=== PATIENT | male | born 1955 ===

== ENCOUNTER 2018-04-09 00:33 | Emergency (ER) | payer SELFPAY ==
[2018-04-09 00:37] VITALS: RESP 18
--- NOTE | 2018-04-09 01:16 | ED PDOC ---
HPI: Head Injury Time Seen by Provider: 04/09/18 00:40 Chief Complaint (Nursing): Trauma Chief Complaint (Provider): head injury History Per: EMS History/Exam Limitations: intoxication Additional Complaint(s): 62 y/o male brought in by EMS for evaluation of head injury. Patient was found walking up a flight of stairs with blood all over him and a bump on his head. Patient intoxicated; HPI limited due to patient's current state Past Medical History Reviewed: Historical Data, Nursing Documentation, Vital Signs Vital Signs: Last Vital Signs Temp 97.8 F 04/09/18 00:35 Pulse 97 H 04/09/18 00:35 Resp 18 04/09/18 00:35 BP 129/77 04/09/18 00:35 Pulse Ox 93 L 04/09/18 00:35 - Home Medications Home Medications: Ambulatory Orders Medication Instructions Recorded Amoxicillin/Clavulanate [Augmentin 1 tab PO Q12 #13 tab 04/09/18 875 MG-125 MG] - Allergies Allergies/Adverse Reactions: Allergies Allergy/AdvReac Type Severity Reaction Status Date / Time Unobtainable Allergy Verified 04/09/18 00:59 Review of Systems Review Of Systems: ROS cannot be obtained secondary to pt's inabilty to answer questions. Physical Exam - Reviewed Nursing Documentation Reviewed: Yes Vital Signs Reviewed: Yes - Physical Exam Appears: Positive for: Well, Non-toxic, No Acute Distress Head Exam: Negative for: ATRAUMATIC (0.5cm superficial laceration with large underlying fluctuant hematoma to right frontal scalp ) Skin: Positive for: Normal Color Eye Exam: Positive for: Normal appearance, EOMI, PERRL. Negative for: Periorbital swelling, Periorbital tenderness, Conjunctival injection ENT: Positive for: TM Is/Are (clear b/l), Other (dried blood bilateral nares; no septal hematoma bilaterally) Cardiovascular/Chest: Positive for: Regular Rate, Rhythm Respiratory: Positive for: Normal Breath Sounds Gastrointestinal/Abdominal: Positive for: Normal Exam Back: Positive for: Normal Inspection Extremity: Positive for: Normal ROM Neurologic/Psych: Positive for: Alert, Oriented (x1) - Laboratory Results Result Diagrams: 04/09/18 02:20 04/09/18 02:20 - ECG O2 Sat by Pulse Oximetry: 93 - Progress ED Course And Treament: labs, CT head, CT facial bones, CT cervical spine ordered EXAM: CT Head Without Intravenous Contrast EXAM DATE/TIME: 04/09/2018 1:00 AM CLINICAL HISTORY: 62 years old, male; Injury or trauma; Fall; Initial encounter; Blunt trauma ( contusions or hematomas) and swelling (edema); Additional info: ETOH, head injury TECHNIQUE: Axial computed tomography images of the head/brain without intravenous contrast. All CT scans at this facility use at least one of these dose optimization techniques: automated exposure control; mA and/or kV adjustment per patient size (includes targeted exams where dose is matched to clinical indication); or iterative reconstruction. COMPARISON: No relevant prior studies available. FINDINGS: Brain: Normal. No hemorrhage. No significant white matter disease. No edema. Ventricles: Normal. No ventriculomegaly. Bones/joints: Nasal bone fracture. Right frontal bone fracture which extends to the right superior lateral orbital wall. Sinuses: Partial opacification of the sinuses. Mastoid air cells: Normal as visualized. No mastoid effusion. Soft tissues: Large right frontal subcutaneous tissue hematoma. Small periorbital hematoma and subcutaneous tissue air. IMPRESSION: 1. Large right frontal subcutaneous tissue hematoma. 2. Nasal bone fracture. 3. Right frontal bone fracture which extends to the right superior lateral orbital wall. 4. Small periorbital hematoma and subcutaneous tissue air. 5. No definite acute intracranial abnormality. EXAM: CT Cervical Spine Without Intravenous Contrast EXAM DATE/TIME: 04/09/2018 1:00 AM CLINICAL HISTORY: 62 years old, male; Injury or trauma; Fall; Initial encounter; Blunt trauma; Additional info: ETOH, fall TECHNIQUE: Axial computed tomography images of the cervical spine without intravenous contrast. All CT scans at this facility use at least one of these dose optimization techniques: automated exposure control; mA and/or kV adjustment per patient size (includes targeted exams where dose is matched to clinical indication); or iterative reconstruction. COMPARISON: No relevant prior studies available. FINDINGS: Vertebrae: No acute fracture. Normal alignment. Discs/Spinal canal/Neural foramina: Mild degenerative changes of the osseous structures. Soft tissues: Unremarkable. Lung apices: Normal. IMPRESSION: No acute cervical spine fracture. EXAM: CT Maxillofacial Without Intravenous Contrast EXAM DATE/TIME: 04/09/2018 1:00 AM CLINICAL HISTORY: 62 years old, male; Injury or trauma; Fall; Initial encounter; Blunt trauma ( contusions or hematomas); Maxilla; Additional info: ETOH, fall TECHNIQUE: Axial computed tomography images of the face without intravenous contrast. All CT scans at this facility use at least one of these dose optimization techniques: automated exposure control; mA and/or kV adjustment per patient size (includes targeted exams where dose is matched to clinical indication); or iterative reconstruction. COMPARISON: No relevant prior studies available. FINDINGS: Bones/joints: Nasal bone fractures. Right frontal bone fracture which extends to the right superior lateral orbital wall. Soft tissues: Large right frontal subcutaneous tissue hematoma. Small periorbital hematoma and subcutaneous tissue air. Orbits: Globes are unremarkable. Sinuses: Normal. No air-fluid levels. IMPRESSION: 1. Large right frontal subcutaneous tissue hematoma. 2. Nasal bone fractures. 3. Right frontal bone fracture which extends to the right superior lateral orbital wall. 4. Small periorbital hematoma and subcutaneous tissue air. ice/pressure dressing applied to hematoma Augmentin PO, Tylenol PO, Adacel IM ordered Disposition - Clinical Impression Clinical Impression: Nasal bone fractures, Nondisplaced fracture of right side of frontal bone, Hematoma of frontal scalp, Alcohol intoxication - Patient ED Disposition Is Patient to be Admitted: No Counseled Patient/Family Regarding: Studies Performed, Diagnosis, Need For Followup, Rx Given - Disposition Referrals: [facility] [Outside] Disposition: Routine/Home Disposition Time: 05:46 Condition: IMPROVED Additional Instructions: [facility] (oral maxilla-facial surgery) [address] [place] [id number] [facility]: [phone] Prescriptions: Amoxicillin/Clavulanate [Augmentin 875 MG-125 MG] 1 tab PO Q12 #13 tab Instructions: Nose Fracture, Skull and Facial Fractures, Alcohol Abuse and Alcoholism (DC) Print Language: CROATIAN
[2018-04-09 02:38] LABS: BASO % 0.2 % (0.0-2.0); EOS % 0.1 % (0.0-4.0); HEMOGLOBIN 14.2 g/dL (12.0-18.0); LYMPH # 1.5 K/uL (1.0-4.3); LYMPH % 14.2 % (20.0-40.0); MEAN CELL VOLUME 91.5 fl (80.0-94.0); MEAN CORPUSCULAR HEMOGLOBIN 31.1 pg (27.0-31.0); MEAN PLATELET VOLUME 7.5 fl (7.2-11.7); MONO # 0.4 K/uL (0.0-0.8); MONO % 3.7 % (0.0-10.0); NEUT # 8.5 K/uL (1.8-7.0); NEUT % 81.8 % (50.0-75.0); RBC 4.56 Mil/uL (4.40-5.90); RED CELL DISTRIBUTION WIDTH 13.3 % (11.5-14.5); WHITE BLOOD COUNT 10.4 K/uL (4.8-10.8)
[2018-04-09 02:58] LABS: ALB/GLOB RATIO 1.3 (1.0-2.1); ALBUMIN 4.4 g/dL (3.5-5.0); ALT/SGPT 33 U/L (21-72); AST/SGOT 40 U/L (17-59); BLOOD UREA NITROGEN 11 mg/dl (9-20); CALCIUM 8.3 mg/dL (8.4-10.2); GFR AFRICAN-AMERICAN > 60; GFR NON-AFRICAN AMERICAN > 60
[2018-04-09] MEDS ORDERED: Tdap Vaccine 0.5 ml Vial (10-64 yrs) IM ONE ×2 (03:02→04:40)
[2018-04-09] MEDS ORDERED: Amoxicillin-Clav 875-125 mg Tab PO STA (03:02)
[2018-04-09] MEDS ORDERED: Amoxicillin-Clav 875-125 mg Tab PO ONE (04:39)
[2018-04-09 06:03] VITALS: BP 109/65; PULSE 86; TEMP 98.1; O2SAT 96
--- NOTE | 2018-04-09 13:24 | CT ---
Date of service: 04/09/2018 PROCEDURE: CT HEAD WITHOUT CONTRAST. HISTORY: etoh, head injury COMPARISON: None available. TECHNIQUE: Axial computed tomography images were obtained through the head/brain without intravenous contrast. Radiation dose: Total exam DLP = 1856.36 mGy-cm. This CT exam was performed using one or more of the following dose reduction techniques: Automated exposure control, adjustment of the mA and/or kV according to patient size, and/or use of iterative reconstruction technique. FINDINGS: HEMORRHAGE: No intracranial hemorrhage. BRAIN: No mass effect or edema. No atrophy or chronic microvascular ischemic changes. VENTRICLES: Unremarkable. No hydrocephalus. CALVARIUM: Right frontal scalp hematoma. There is right frontal nondisplaced calvarial fracture extending to the right orbital roof. There is trace right orbital emphysema. There is bilateral nasal fracture. PARANASAL SINUSES: Chronic ethmoid and left maxillary sinusitis. MASTOID AIR CELLS: Unremarkable as visualized. No inflammatory changes. OTHER FINDINGS: None. IMPRESSION: Right frontal calvarial fracture, nondisplaced, extending to right orbital roof. Trace right orbital emphysema. Right frontal scalp hematoma. No intracranial hemorrhage. Chronic paranasal sinusitis. Bilateral nasal fracture. The preliminary findings for this examination were reported by [employer] at 2:35 a.m. on 04/09/2018. There is concurrence of this report with the preliminary findings.
--- NOTE | 2018-04-09 13:38 | CT ---
Date of service: 04/09/2018 PROCEDURE: CT MAXILLOFACIAL BONES WITHOUT CONTRAST HISTORY: etoh, fall COMPARISON: None TECHNIQUE: Contiguous axial CT images of the maxillofacial bones were obtained. Coronal and sagittal reformats were generated. Radiation dose: Total exam DLP = 711.74 mGy-cm. This CT exam was performed using one or more of the following dose reduction techniques: Automated exposure control, adjustment of the mA and/or kV according to patient size, and/or use of iterative reconstruction technique. FINDINGS: NASAL BONES: Minimally displaced right nasal fracture. Comminuted displaced left nasal fracture. Nasal septum appears intact. There is deviation of the nasal septum towards the right. ORBITS: There is fracture of the right orbital roof, lateral aspect, extending into the right frontal calvarium. There is trace right orbital emphysema. There is no intraorbital hemorrhage. The globes are rounded and symmetric. The orbital floor and lamina papyracea are intact. PARANASAL SINUSES/ MASTOIDS: There is chronic frontal, ethmoid and left maxillary sinusitis. MAXILLA: Unremarkable. MANDIBLE/ TEMPOROMANDIBULAR JOINTS: Unremarkable. SKULL BASE: Unremarkable. TEMPORAL BONES: Middle ears and mastoid grossly unremarkable. OTHER FINDINGS: None. IMPRESSION: Fracture right frontal calvarium extending into the lateral aspect of the right orbital roof with trace right orbital emphysema adjacent to the fracture. No intraorbital hemorrhage. Bilateral nasal fracture, comminuted on the left, with mild displacement. Chronic paranasal sinusitis. The preliminary findings for this examination were reported by [facility] at 2:49 a.m. on 04/09/2018. There is concurrence of this report with the preliminary findings.
--- NOTE | 2018-04-09 13:46 | CT ---
Date of service: 04/09/2018 PROCEDURE: CT Cervical Spine without contrast HISTORY: etoh, fall COMPARISON: None available. TECHNIQUE: Axial computed tomography images were obtained of the cervical spine without the use of intravenous contrast. Coronal and sagittal reformatted images were created and reviewed. Radiation dose: Total exam DLP = 395.94 mGy-cm. This CT exam was performed using one or more of the following dose reduction techniques: Automated exposure control, adjustment of the mA and/or kV according to patient size, and/or use of iterative reconstruction technique. FINDINGS: VERTEBRAE: Vertebral bodies maintained in height. Normal alignment maintained. The atlantoaxial articulation and odontoid process are intact. DISCS/SPINAL CANAL/NEURAL FORAMINA: There is narrowing of the C4-5 intervertebral disc space consistent with degenerative disc disease. The remaining disc spaces are maintained in height. PARASPINAL SOFT TISSUES: Unremarkable. OTHER FINDINGS: None. IMPRESSION: No evidence of fracture or dislocation. Degenerative disc disease at C4-5. Otherwise unremarkable examination. The preliminary findings for this examination were reported by [facility] at 2:44 a.m. on 04/09/2018. There is concurrence of this report with the preliminary findings.
== END 2018-04-09 06:41 | disposition home or self-care (01) ==
LOC: H.ER 00:33
DX: S02.2XXA Fracture of nasal bones, initial encounter for closed fracture (principal); S19.9XXA Unspecified injury of neck, initial encounter; S02.0XXA Fracture of vault of skull, initial encounter for closed fracture; Y92.89 Other specified places as the place of occurrence of the external cause; F10.129 Alcohol abuse with intoxication, unspecified
CPT/HCPCS: 70450; 70486; 72125; 80053; 82948; 85025; 90471; 90715; 99285; G0480